=== PATIENT | female | born 1990 | race Caucasian/White ===

== ENCOUNTER 2018-09-10 18:01 | Emergency (ER) | payer OTHER ==
[2018-09-10 18:14] VITALS: RESP 18; TEMP 98.2
[2018-09-10] MEDS ORDERED: METOCLOPRAMIDE 5 MG/ML 2 ML VIAL IVP STA (19:58)
[2018-09-10] MEDS ORDERED: KETOROLAC 30 MG/ML 1 ML VIAL IVP STA (19:58)
[2018-09-10] MEDS ORDERED: diphenhydrAMINE 50 MG CAP PO STA (19:58)
--- NOTE | 2018-09-10 20:14 | ED ---
General Adult HPI - General Chief complaint: Headache Stated complaint: headache Time Seen by Provider: 09/10/18 19:30 Source: patient, RN notes reviewed Mode of arrival: ambulatory Limitations: no limitations - History of Present Illness Initial comments: 28-year-old female presents to the emergency department for a chief complaint of headache times months. Patient states she has been seeing her primary care provider for this who prescribed her sumatriptan and ibuprofen. Patient states she is sensitive to sound but not significantly sensitive to light. Patient states she has a history of orthostatic hypotension and wonders if this could be related. Patient describes the pain as a pain extending around the sides of her head and across her forehead. She states she feels a tightness and sharp pain in the forehead. Patient denies any nausea or vomiting. She denies any fevers or chills. She did state that her temperature increased by 0.8 since she presented to the emergency department. She states she saw her primary care provider who sent her to the emergency department for a CT of the brain to rule out any masses or tumors. she denies this being the worst headache of her life. Patient has no other complaints at this time including shortness of breath, chest pain, abdominal pain, nausea or vomiting, or visual changes. - Related Data Home Medications Medication Instructions Recorded Confirmed Ibuprofen [Motrin] 800 mg PO TID PRN 09/10/18 09/10/18 Allergies Allergy/AdvReac Type Severity Reaction Status Date / Time No Known Allergies Allergy Verified 09/10/18 20:05 Review of Systems ROS Statement: Those systems with pertinent positive or pertinent negative responses have been documented in the HPI. ROS Other: All systems not noted in ROS Statement are negative. Past Medical History Additional Past Medical History / Comment(s): vertigo History of Any Multi-Drug Resistant Organisms: None Reported Past Surgical History: Section, Tubal Ligation Additional Past Surgical History / Comment(s): urterine ablasion Past Psychological History: Anxiety, Depression, Schizophrenia Smoking Status: Never smoker Past Alcohol Use History: None Reported Past Drug Use History: Marijuana General Exam Limitations: no limitations General appearance: alert, in no apparent distress Head exam: Present: atraumatic, normocephalic, normal inspection Eye exam: Present: normal appearance, PERRL, EOMI. Absent: scleral icterus, conjunctival injection, periorbital swelling ENT exam: Present: normal exam, normal oropharynx, mucous membranes moist, TM's normal bilaterally, normal external ear exam Neck exam: Present: normal inspection, full ROM (Full range of motion of the neck). Absent: tenderness, meningismus, lymphadenopathy Respiratory exam: Present: normal lung sounds bilaterally. Absent: respiratory distress, wheezes, rales, rhonchi, stridor Cardiovascular Exam: Present: regular rate, normal rhythm, normal heart sounds. Absent: systolic murmur, diastolic murmur, rubs, gallop, clicks Extremities exam: Present: full ROM Neurological exam: Present: alert, oriented X3, CN II-XII intact, normal gait Expanded Patient oriented to: Present: person, place, time Speech: Present: fluid speech Cranial nerves: EOM's Intact: Normal, Tongue Deviation: Normal, Nystagmus: Normal, Facial Sensation: Normal Cerebellar function: Finger to Nose: Normal, Heel to Bennett: Normal, Romberg: Normal Upper motor neuron: Pronator Drift: Normal Sensory exam: Upper Extremity Light Touch: Normal, Upper Extremity Pin Prick: Normal, Lower Extremity Pin Prick: Normal, Lower Extremity Temperature: Normal Motor strength exam: RUE: 5, LUE: 5, RLE: 5, LLE: 5 Eye Response: (4) open spontaneously Motor Response: (6) obeys commands Verbal Response: (5) oriented Benito Total: 15 Psychiatric exam: Present: normal affect, normal mood Course Vital Signs 09/10/18 09/10/18 18:09 21:30 Temperature 98.2 F Pulse Rate 77 73 Respiratory 18 18 Rate Blood Pressure 110/67 90/58 O2 Sat by Pulse 100 100 Oximetry Medical Decision Making - Medical Decision Making 28-year-old female presents for a headache times months. Patient states she has been seeing her primary care provider who has prescribed medications for this. Patient was told by primary care to come to the emergency department for a CT to rule out any brain tumors or masses. Patient describes her headache as a tightness that wraps around her head. She states it comes and goes. She denies this being the worst headache of her life. Vitals are stable, patient is afebrile. No focal neuro deficits on exam. CT was ordered to rule out any masses. CT of the brain showed a normal scan without mass effect or midline shift. Patient was given pain medication in the emergency department and states her pain is significantly improved. Patient comfortable going home at this time with a neurology follow-up. Discussed returning if she has any worsening symptoms. Patient voices agreement of this and states she does understand the plan. Discussed with Dr. Haddad Disposition Clinical Impression: Headache Disposition: HOME SELF-CARE Condition: Good Instructions: Acute Headache (ED) Additional Instructions: Please follow up with primary care in 1-2 days. Please follow-up with neurology as well. Please return to the emergency department if you have any worsening symptoms. Is patient prescribed a controlled substance at d/c from ED?: No Referrals: Elan Torres MD [Primary Care Provider] - 1-2 days Felipe Truong MD [STAFF PHYSICIAN] - 1-2 days Time of Disposition: 21:53
[2018-09-10] MEDS ORDERED: SODIUM CHLORIDE 0.9% 1,000 ML IV STA (20:37)
[2018-09-10 21:31] VITALS: BP 90/58; PULSE 73
--- NOTE | 2018-09-10 21:31 | CT ---
EXAMINATION TYPE: CT brain wo con DATE OF EXAM: 09/10/2018 COMPARISON: None HISTORY: headache X [address] DLP: 1224.4 mGycm. Automated Exposure Control for Dose Reduction was Utilized. TECHNIQUE: CT scan of the head is performed without contrast. FINDINGS: Ventricles and sulci appear normal. There is no mass effect nor midline shift. There is no sign of intracranial hemorrhage. The calvarium is intact. There is no evidence of cerebral edema. Impression normal CT scan of the brain.
== END 2018-09-10 22:09 | disposition home or self-care (01) ==
LOC: EC 18:01
DX: R51 Headache (principal); Z98.51 Tubal ligation status; Z98.890 Other specified postprocedural states
CPT/HCPCS: 70450; 99284; 96374; 96375; 96361; J2765; J1885

== ENCOUNTER → 2018-10-22 | Outpatient (CLI) | payer OTHER ==
--- NOTE | 2018-10-22 15:35 | MR ---
EXAMINATION TYPE: MR angio head wo con DATE OF EXAM: 10/22/2018 COMPARISON: NONE HISTORY: Migraine headaches TECHNIQUE: Time of flight images focusing on the [place] were performed without contrast.. 2-D and 3-D postprocessing imaging is performed on MRI scanner and reviewed. FINDINGS: There is codominant vertebrobasilar system. Vertebral arteries are patent to basilar juncti on. There is no significant focal stenosis or aneurysmal change in the posterior circulation. There a re small caliber but patent posterior communicating arteries noted bilaterally. Images of the anterior circulation show tortuous course to the distal internal carotid arteries bilat erally. No aneurysmal change is clearly present. There is patent anterior communicating artery identi fied which is slightly tortuous course. IMPRESSION: No aneurysmal change at the level of the [place].
--- NOTE | 2018-10-22 16:13 | MR ---
EXAMINATION TYPE: MR brain wo con DATE OF EXAM: 10/22/2018 COMPARISON: MRI angiogram of the head dated 10/22/[address] brain dated 09/10/2018. HISTORY: Migraine without aura TECHNIQUE: Multiplanar, multisequence images of the brain and brainstem is performed without intravenous contras t. FINDINGS: Diffusion weighted images demonstrate no evidence of a recent infarct or other diffusion ab normality. There is no extra-axial fluid collection or significant white matter signal abnormality. The ventricular system and cisternal spaces are normal in size and appearance. The brain volume is age appropriate. Midline structures demonstrate normal morphology. The craniocervical junction appears within normal limits. The dural venous sinuses appear patent. The visualized sinuses are clear and the globes are i ntact. There is minimal leftward nasal septal deviation. Major intracranial flow voids are maintained . IMPRESSION: 1. No evidence of acute intracranial hemorrhage, midline shift or mass effect. 2. No significant white matter change. 3. Overall unremarkable unenhanced MRI of the brain.
== END | disposition home or self-care (01) ==
LOC: RADMRIMAIN 14:47
PROVIDERS: ATTEND Psychiatry & Neurology Neurology
DX: G43.009 Migraine without aura, not intractable, without status migrainosus (principal)
CPT/HCPCS: 70544; 70551